=== PATIENT | female | born 1945 | race American Indian/Alaskan Native ===

== ENCOUNTER 2018-06-22 10:43 | Outpatient (CLI) | payer MEDICARE | END 2018-06-22 10:44 | disposition home or self-care (01) | LOC: LAB 10:43 | PROVIDERS: ATTEND Internal Medicine | DX: E11.65 Type 2 diabetes mellitus with hyperglycemia (principal); I10 Essential (primary) hypertension | CPT/HCPCS: 36415; 83036 ==

== ENCOUNTER 2018-11-23 09:39 | Outpatient (CLI) | payer MEDICARE ==
--- NOTE | 2018-11-23 11:39 | XRay Report ---
Metastatic survey-17 views INDICATION: C90.01)Multiple myeloma in remission. COMPARISON: There is reportedly a metastatic survey from 01/05/2016, although I do not have images or a report IMPRESSION: No gross osseous metastatic disease identified. Several right-sided rib fractures are pr esent which appear to be subacute/chronic. A right-sided Port-A-Cath is in place with tip in the SVC. Several small radiopacities project over the skull, presumably related to the patient's hair or ramon ething on the skin surface. There are degenerative changes throughout the spine and pelvis with no ac [place] osseous abnormality. Signer Name: Lauri Harrison MD Signed: 11/23/2018 11:35 AM Workstation Name: [id number]
== END 2018-11-23 09:40 | disposition home or self-care (01) ==
LOC: XRAY 09:39
PROVIDERS: ATTEND Internal Medicine Hematology & Oncology
DX: C90.01 Multiple myeloma in remission (principal); E11.9 Type 2 diabetes mellitus without complications; I10 Essential (primary) hypertension
CPT/HCPCS: 77074

== ENCOUNTER 2018-12-13 05:49 | Day surgery (SDC) | payer MEDICARE ==
[2018-12-13 06:54] LABS: INR 1.03 (0.87-1.13); Partial Thromboplastin Time 26.2 Sec. (24.2-36.6)
[2018-12-13 07:07] LABS: Hematocrit 35.6 % (30.3-42.9); Hemoglobin 11.6 gm/dl (10.1-14.3); Mean Corpuscular HGB Conc 33 % (30-34); Mean Corpuscular Volume 97 fl (79-97); Platelet Count 105 K/mm3 (140-440); Red Blood Count 3.67 M/mm3 (3.65-5.03); Red Cell Distribution Width 14.6 % (13.2-15.2)
[2018-12-13] MEDS ORDERED: DILAUDID IV NR (08:11)
[2018-12-13] MEDS ORDERED: ZOFRAN IV NR (08:12)
[2018-12-13] MEDS ORDERED: DILAUDID ONE (09:19)
[2018-12-13] MEDS ORDERED: DILAUDID IV ONE (09:30)
--- NOTE | 2018-12-13 10:20 | Cat Scan Report ---
CT-GUIDED BONE MARROW BIOPSY INDICATION : Multiple myeloma. Thrombocytopenia COMPARISON: None PROCEDURE: The risks (including but not limited to bleeding and infection) and benefits were explain ed to the patient and informed consent was obtained. All CT scans at this location are performed usi ng CT dose reduction for PEGGYRA by means of automated exposure control. A time out procedure was performed. The procedure site was prepped and draped in the usual sterile f ashion and lidocaine was used for local anesthesia. Anxiolysis was accomplished with IV Dilaudid and Zofran. Using CT guidance, an 10 introducer needle w as advanced into the posterior right iliac bone. 4 bone marrow aspirations approximately 1 cc each we re obtained in 4 tubes. A 1 cm 11-gauge bone core was also obtained. Pathology was present to handle the samples. The patient tolerated the procedure well with no complications. IMPRESSION: Successful CT-guided bone marrow biopsy. Signer Name: Scott Sawyer Jr, MD Signed: 12/13/2018 10:16 AM Workstation Name: [id number]
[2018-12-13 10:36] VITALS: BP 140/58
[2018-12-13 12:30] LABS: Basophils % (Manual) 0 % (0.0-1.8); Total Cells Counted 100
[2018-12-13 12:31] LABS: Platelet Estimate Consistent w Auto; RBC Morphology Normal
== END 2018-12-13 10:57 | disposition home or self-care (01) ==
LOC: CATHLABREC 05:49 → EDSTATUS 07:30 → CATHLABREC 10:57
PROVIDERS: ATTEND Internal Medicine Hematology & Oncology
DX: C90.01 Multiple myeloma in remission (principal); D69.6 Thrombocytopenia, unspecified; E11.65 Type 2 diabetes mellitus with hyperglycemia; E66.01 Morbid (severe) obesity due to excess calories; I11.0 Hypertensive heart disease with heart failure; I50.9 Heart failure, unspecified; I25.10 Atherosclerotic heart disease of native coronary artery without angina pectoris; Z98.890 Other specified postprocedural states; Z79.82 Long term (current) use of aspirin; Z79.4 Long term (current) use of insulin; Z79.899 Other long term (current) drug therapy; Z98.41 Cataract extraction status, right eye; Z98.42 Cataract extraction status, left eye
CPT/HCPCS: 36415; 38222; 82962; 85007; 85027; 85097; 85610; 85730; 88184; 88185; 88230; 88291; 88305; J1170; J2405; 38220; 88161; 88311; 88313

== ENCOUNTER 2019-01-04 12:07 | Inpatient (IN) | payer MEDICARE ==
--- NOTE | 2019-01-04 12:32 | Event Note ---
ED Screening Note Date of service: 01/04/19 Time: 12:30 ED Screening Note: 73 y/o female that is currently in chemotherapy for multiplemyeloma c/o SOB times 1 month. No fevers. This initial assessment/diagnostic orders/clinical plan/treatment(s) is/are subject to change based on patients health status, clinical progression and re- assessment by fellow clinical providers in the ED. Further treatment and workup at subsequent clinical providers discretion. Patient/guardian urged not to elope from the ED as their condition may be serious if not clinically assessed and managed. Initial orders include:
--- NOTE | 2019-01-04 13:13 | XRay Report ---
CHEST 2 VIEW INDICATION: Shortness of breath. COMPARISON: 11/23/2018 FINDINGS: Support devices: Right Tynbhx-t-Ciyd remains in the same position. Heart: Within normal limits. Lungs/Pleura: There is poor inspiratory effort with hypoventilatory changes in the lower lung zones. Mild bronchial wall thickening is suspected in both hilar regions which could represent reactive airw ay disease or bronchiolitis. No consolidation, pleural effusion or pneumothorax is identified. Additional findings: None. IMPRESSION: Poor inspiration. Mild bilateral perihilar prominence is identified as described above. No lobar pne umonia, pleural effusion or pneumothorax. Signer Name: Scott Sawyer Jr, MD Signed: 01/04/2019 1:08 PM Workstation Name: [id number]
[2019-01-04] MEDS ORDERED: IPRATROPIUM/ALBUTEROL SULFATE 3 ML AMPUL.NEB IH ONE ×2 (13:42→14:33)
[2019-01-04 13:56] LABS: Basophils % (Auto) 0.6 % (0.0-1.8); Eosinophils % (Auto) 0.5 % (0.0-4.3); Hematocrit 36.4 % (30.3-42.9); Hemoglobin 12.1 gm/dl (10.1-14.3); Lymphocytes # (Auto) 1.3 K/mm3 (1.2-5.4); Lymphocytes % (Auto) 16.6 % (13.4-35.0); Mean Corpuscular HGB Conc 33 % (30-34); Mean Corpuscular Volume 96 fl (79-97); Monocytes # (Auto) 0.4 K/mm3 (0.0-0.8); Monocytes % (Auto) 4.9 % (0.0-7.3); Platelet Count 113 K/mm3 (140-440); Red Blood Count 3.78 M/mm3 (3.65-5.03); Red Cell Distribution Width 15.3 % (13.2-15.2)
[2019-01-04 14:01] LABS: Alanine Aminotransferase 17 units/L (7-56); Albumin 2.8 g/dL (3.9-5); BUN/Creatinine Ratio 14; Blood Urea Nitrogen 11 mg/dL (7-17); Calcium 9.9 mg/dL (8.4-10.2); Hemolysis Index 36
--- NOTE | 2019-01-04 14:14 | Emergency Department Report ---
ED General Adult HPI - General Chief complaint: Dyspnea/Respdistress Stated complaint: RAFFAELE Time Seen by Provider: 01/04/19 12:28 Source: patient, family Mode of arrival: Wheelchair Limitations: No Limitations - History of Present Illness Initial comments: 73-year-old female arrives with I believe her daughter. She herself is very poor historian. It is states that patient has been short of breath the last month and a half. She went to her oncologist Dr. Campbell became more dyspneic. She was sent to the emergency department for evaluation. The patient states he is short of breath. They have noted some mild swelling of her feet. She does not complain of chest pain. She has some nonproductive cough but it is not frequent. She's had no recent travel. She had no hemoptysis. There is no history of known cardiac or pulmonary disease per se. The patient is morbidly obese. She has a history of multiple myeloma. This is her second round of chemotherapy. Associated Symptoms: denies other symptoms (a limited historian) - Related Data Home Medications Medication Instructions Recorded Confirmed Last Taken Potassium Chloride 20 meq PO QDAY 07/07/13 12/13/18 12/12/18 20 meq oxyCODONE /ACETAMINOPHEN [Percocet 1 tab PO Q4H PRN 07/07/13 12/13/18 11/26/18 5/325 mg] 1 tab Insulin Aspart Prot/Aspart(Nf) 12 unit SQ HS 07/31/13 12/13/18 12/12/18 [Novolog Mix 70/30] 12 units Aspirin [Adult Aspirin] 81 mg PO DAILY 12/13/18 12/13/18 1 Week Ago ~12/06/18 Insulin Aspart Prot/Aspart(Nf) 15 unit SQ QAM 12/13/18 12/13/18 12/12/18 [NovoLOG Mix 70/30 VIAL] 15 units Allopurinol [Zyloprim] 300 mg PO QDAY 01/04/19 01/04/19 01/03/19 Previous Rx's Medication Instructions Recorded Last Taken Type Lactulose [Cephulac] 20 gm PO QDAY #300 ml 08/10/13 12/10/18 Rx 20 gm Allergies Allergy/AdvReac Type Severity Reaction Status Date / Time No Known Allergies Allergy Verified 12/12/12 12:44 ED Review of Systems ROS: Stated complaint: RAFFAELE Other details as noted in HPI Comment: Unobtainable due to pts medical conditions ED Past Medical Hx - Past Medical History Previous Medical History?: Yes Hx Hypertension: Yes (on carvidolol) Hx Heart Attack/AMI: Yes (05/2012) Hx Diabetes: Yes Hx Liver Disease: Yes (Jaundice d/t gallstones) Hx Asthma: No Hx HIV: No Additional medical history: bile duct stones - Surgical History Past Surgical History?: Yes Additional Surgical History: bile duct stone removed - Social History Smoking Status: Never Smoker Substance Use Type: None - Medications Home Medications: Home Medications Medication Instructions Recorded Confirmed Last Taken Type Potassium Chloride 20 meq PO QDAY 07/07/13 12/13/18 12/12/18 History 20 meq oxyCODONE /ACETAMINOPHEN [Percocet 1 tab PO Q4H PRN 07/07/13 12/13/18 11/26/18 History 5/325 mg] 1 tab Insulin Aspart Prot/Aspart(Nf) 12 unit SQ HS 07/31/13 12/13/18 12/12/18 History [Novolog Mix 70/30] 12 units Lactulose [Cephulac] 20 gm PO QDAY #300 ml 08/10/13 12/13/18 12/10/18 Rx 20 gm Aspirin [Adult Aspirin] 81 mg PO DAILY 12/13/18 12/13/18 1 Week Ago History ~12/06/18 Insulin Aspart Prot/Aspart(Nf) 15 unit SQ QAM 12/13/18 12/13/18 12/12/18 History [NovoLOG Mix 70/30 VIAL] 15 units Allopurinol [Zyloprim] 300 mg PO QDAY 01/04/19 01/04/19 01/03/19 History ED Physical Exam - General Limitations: No Limitations General appearance: alert, in no apparent distress, obese - Head Head exam: Present: atraumatic, normocephalic - Eye Eye exam: Present: normal appearance - ENT ENT exam: Present: mucous membranes moist - Neck Neck exam: Present: normal inspection. Absent: tenderness, meningismus - Respiratory Respiratory exam: Present: other (increased work of breathing). Absent: respiratory distress - Cardiovascular Cardiovascular Exam: Present: regular rate, normal rhythm. Absent: systolic murmur, diastolic murmur, rubs, gallop - GI/Abdominal GI/Abdominal exam: Present: soft, normal bowel sounds. Absent: distended, tenderness, guarding, rebound - Extremities Exam Extremities exam: Present: normal inspection, pedal edema. Absent: calf tenderness - Back Exam Back exam: Present: normal inspection - Neurological Exam Neurological exam: Present: alert, oriented X3 - Psychiatric Psychiatric exam: Present: normal affect, normal mood - Skin Skin exam: Present: warm, dry, intact, normal color. Absent: rash ED Course Vital Signs 01/04/19 01/04/19 01/04/19 12:21 13:06 13:15 Temperature 97.7 F Pulse Rate 76 81 Pulse Rate [ Bilateral] Respiratory 18 22 Rate Respiratory Rate [Bilateral ] Blood Pressure 170/68 145/75 139/68 O2 Sat by Pulse 95 95 Oximetry 01/04/19 01/04/19 13:30 14:29 Temperature Pulse Rate 82 Pulse Rate [ 81 Bilateral] Respiratory 19 Rate Respiratory 18 Rate [Bilateral ] Blood Pressure 142/71 O2 Sat by Pulse 97 Oximetry - Reevaluation(s) Reevaluation #1: Discussed with Dr. Rapp. We are going to proceed with CT angiogram. Positive the patient's dyspnea is yet uncertain. Her blood gas revealed a PO2 69 with no rmal pH and essentially normal PCO2. Her chest x-ray may be consistent with. Mild Hilar infiltrates secondary to CHF. Additional lab work is yet pending. She will be admitted to [facility] for further evaluation by Dr. Rapp. 01/04/19 14:38 ED Medical Decision Making - Lab Data Result diagrams: 01/04/19 13:13 01/04/19 13:13 Laboratory Results - last 24 hr 01/04/19 01/04/19 13:13 13:13 WBC 7.6 RBC 3.78 Hgb 12.1 Hct 36.4 MCV 96 MCH 32 MCHC 33 RDW 15.3 H Plt Count 113 L Lymph % (Auto) 16.6 [place] % (Auto) 4.9 Eos % (Auto) 0.5 Baso % (Auto) 0.6 Lymph # 1.3 [place] # 0.4 Eos # 0.0 Baso # 0.0 Seg Neutrophils % 77.4 H Seg Neutrophils # 5.9 Sodium 138 Potassium 4.6 Chloride 104.6 Carbon Dioxide 22 Anion Gap 16 BUN 11 Creatinine 0.8 Estimated GFR > 60 BUN/Creatinine Ratio 14 Glucose 115 H Calcium 9.9 Total Bilirubin 0.30 AST 17 ALT 17 Alkaline Phosphatase 51 Total Protein 8.5 H Albumin 2.8 L Albumin/Globulin Ratio 0.5 Laboratory Results - last 24 hr 01/04/19 01/04/19 13:13 13:13 WBC 7.6 RBC 3.78 Hgb 12.1 Hct 36.4 MCV 96 MCH 32 MCHC 33 RDW 15.3 H Plt Count 113 L Lymph % (Auto) 16.6 [place] % (Auto) 4.9 Eos % (Auto) 0.5 Baso % (Auto) 0.6 Lymph # 1.3 [place] # 0.4 Eos # 0.0 Baso # 0.0 Seg Neutrophils % 77.4 H Seg Neutrophils # 5.9 Sodium 138 Potassium 4.6 Chloride 104.6 Carbon Dioxide 22 Anion Gap 16 BUN 11 Creatinine 0.8 Estimated GFR > 60 BUN/Creatinine Ratio 14 Glucose 115 H Calcium 9.9 Total Bilirubin 0.30 AST 17 ALT 17 Alkaline Phosphatase 51 Total Protein 8.5 H Albumin 2.8 L Albumin/Globulin Ratio 0.5 - EKG Data -: EKG Interpreted by Mi EKG shows normal: sinus rhythm, axis (left), intervals, QRS complexes Rate: normal - EKG Data Interpretation: nonspecific ST-T wave chin - Radiology Data Radiology results: report reviewed, image reviewed Chest x-ray hypoinflated no acute process seen Critical care attestation.: If time is entered above; I have spent that time in minutes in the direct care of this critically ill patient, excluding procedure time. ED Disposition Clinical Impression: Thrombocytopenia, Diastolic dysfunction, Morbid obesity Dyspnea Qualifiers: Dyspnea type: unspecified Qualified Code(s): R06.00 - Dyspnea, unspecified Multiple myeloma Qualifiers: Multiple myeloma remission status: unspecified Qualified Code(s): C90.00 - Multiple myeloma not having achieved remission Disposition: OP ADMIT IP TO THIS HOSP Is pt being admited?: Yes Does the pt Need Aspirin: Yes Condition: Stable Referrals: PRIMARY CARE, [Primary Care Provider] - 3-5 Days Time of Disposition: 15:00
[2019-01-04] MEDS ORDERED: ASPIRIN 81 MG TAB CHEW PO ONE (14:42)
[2019-01-04 14:46] LABS: INR 0.93 (0.87-1.13)
[2019-01-04 14:51] LABS: Creatine Kinase MB 1.3 ng/mL (0.0-4.0)
--- NOTE | 2019-01-04 15:46 | Cat Scan Report ---
CTA of the chest with 3D Reconstruction Indication: ,Shortness of breath for one month Technique: TECHNIQUE: Axial CT images were obtained through the chest after injection of 100 cc of Omnipaque 350 IV contrast. 3 plane MIP reconstructions were produced. All CT scans at this location are performed using CT dose reduction for ALARA by means of automated exposure control. COMPARISON: None Automatic exposure control was utilized in an attempt to reduce radiation dose. Findings: Pulmonary arteries: The main pulmonary artery and right and left pulmonary artery branches fill satis factorily with contrast. No pulmonary embolus is seen. Lungs: No acute pulmonary disease is seen. There is deformity of several left Mediastinum: Heart size is normal. No adenopathy is seen. Aorta: Normal in diameter. No dissection seen within limits of this exam. There is deformity of several left ribs. There are healed fractures as well. There are several focal expanded areas with within the ribs bilaterally. These could be related to prior fracture. Healed. P ossible millimeters these represent expansile lesions which are neither lytic or sclerotic is conside red. Impression: No pulmonary embolus is seen Signer Name: Drew Adorno MD Signed: 01/04/2019 3:41 PM Workstation Name: [id number]
[2019-01-04] MEDS ORDERED: traMADol 50 MG TAB PO PRN (18:36)
[2019-01-04] MEDS: IPRATROPIUM/ALBUTEROL SULFATE 3 ML AMPUL.NEB IH SCH ×2 (18:38→19:01)
[2019-01-04] MEDS ORDERED: DEXTROSE 50% IN WATER (25GM) 50 ML SYRINGE IV PRN (18:39)
[2019-01-04] MEDS ORDERED: oxyCODONE 5 MG TAB PO PRN (21:28)
[2019-01-04] MEDS ORDERED: ASPART SQ SCH (22:00)
[2019-01-04] MEDS ORDERED: INSULIN ASPART PROT SQ SCH (22:00)
[2019-01-04] MEDS ORDERED: TIMOLOL MALEAT OP SCH (22:00)
[2019-01-04] MEDS ORDERED: allopurinoL 300 MG TAB PO SCH (22:00)
[2019-01-04] MEDS ORDERED: DORZOLAMIDE HCL OP SCH (22:00)
[2019-01-04] MEDS ORDERED: INSULIN LISPRO 100 UNIT/ML SUB-Q SCH (22:00)
[2019-01-04] MEDS: FUROSEMIDE 40 MG/4 ML INJ IV SCH (23:04)
[2019-01-04] MEDS: LACTULOSE 20 GM/30 ML ORAL LIQD PO SCH (23:04)
[2019-01-04] MEDS: POTASSIUM CHLORIDE 20 MEQ PACKET PO SCH (23:05)
[2019-01-04] MEDS: INSULIN NPH/REGULAR 70/30 INJ SUB-Q SCH (23:05)
--- NOTE | 2019-01-05 06:19 | History and Physical Report ---
History of Present Illness Date of examination: 01/04/19 Date of admission: 01/04/19 14:43 Chief complaint: SOB for one week History of present illness: 73-year-old female with history of Multiple Myeloma IDDM ,HTN and Morbid obesity well known to me from office for 20 years comes in for increasing SOB and Orthopnea for one week.Started Chemo couple of weeks ago with Dr Campbell.Had Chemo for MM in the past.MM was diagnosed about 10 years ago. She went to her oncologist Dr. Campbell and became more dyspneic in the office. She was sent to the emergency dept. She does not complain of chest pain. She has some nonproductive cough but it is not frequent. She's had no recent travel. She had no hemoptysis. There is no history of known cardiac or pulmonary disease per se. The patient is morbidly obese. She has a history of multiple myeloma. This is her second round of chemotherapy. Associated Symptoms: denies other symptoms (a limited historian) - Related Data Home Medications Medication Instructions Recorded Confirmed Last Taken Potassium Chloride 20 meq PO QDAY 07/07/13 12/13/18 12/12/18 20 meq oxyCODONE /ACETAMINOPHEN [Percocet 1 tab PO Q4H PRN 07/07/13 12/13/18 11/26/18 5/325 mg] 1 tab Insulin Aspart Prot/Aspart(Nf) 12 unit SQ HS 07/31/13 12/13/18 12/12/18 [Novolog Mix 70/30] 12 units Aspirin [Adult Aspirin] 81 mg PO DAILY 12/13/18 12/13/18 1 Week Ago ~12/06/18 Insulin Aspart Prot/Aspart(Nf) 15 unit SQ QAM 12/13/18 12/13/18 12/12/18 [NovoLOG Mix 70/30 VIAL] 15 units Allopurinol [Zyloprim] 300 mg PO QDAY 01/04/19 01/04/19 01/03/19 Previous Rx's Medication Instructions Recorded Last Taken Type Lactulose [Cephulac] 20 gm PO QDAY #300 ml 08/10/13 12/10/18 Rx 20 gm Allergies Allergy/AdvReac Type Severity Reaction Status Date / Time No Known Allergies Allergy Verified 12/12/12 12:44 ED Review of Systems ROS: Stated complaint: RAFFAELE Other details as noted in HPI Comment: Unobtainable due to pts medical conditions ED Past Medical Hx - Past Medical History Previous Medical History?: Yes Hx Hypertension: Yes (on carvidolol) Hx Heart Attack/AMI: Yes (05/2012) Hx Diabetes: Yes Hx Liver Disease: Yes (Jaundice d/t gallstones) Hx Asthma: No Hx HIV: No Additional medical history: bile duct stones - Surgical History Past Surgical History?: Yes Additional Surgical History: bile duct stone removed - Social History Smoking Status: Never Smoker Substance Use Type: None - Medications Home Medications: Home Medications Medication Instructions Recorded Confirmed Last Taken Type Potassium Chloride 20 meq PO QDAY 07/07/13 12/13/18 12/12/18 History 20 meq oxyCODONE /ACETAMINOPHEN [Percocet 1 tab PO Q4H PRN 07/07/13 12/13/18 11/26/18 History 5/325 mg] 1 tab Insulin Aspart Prot/Aspart(Nf) 12 unit SQ HS 07/31/13 12/13/18 12/12/18 History [Novolog Mix 70/30] 12 units Lactulose [Cephulac] 20 gm PO QDAY #300 ml 08/10/13 12/13/18 12/10/18 Rx 20 gm Aspirin [Adult Aspirin] 81 mg PO DAILY 12/13/18 12/13/18 1 Week Ago History ~12/06/18 Insulin Aspart Prot/Aspart(Nf) 15 unit SQ QAM 12/13/18 12/13/18 12/12/18 History [NovoLOG Mix 70/30 VIAL] 15 units Allopurinol [Zyloprim] 300 mg PO QDAY 01/04/19 01/04/19 01/03/19 History Medications and Allergies Allergies Allergy/AdvReac Type Severity Reaction Status Date / Time No Known Allergies Allergy Verified 12/12/12 12:44 Home Medications Medication Instructions Recorded Confirmed Last Taken Type oxyCODONE /ACETAMINOPHEN [Percocet 1 tab PO Q4H PRN 07/07/13 01/04/19 01/03/19 History 5/325 mg] Insulin Aspart Prot/Aspart(Nf) 12 unit SQ HS 07/31/13 01/04/19 01/03/19 History [Novolog Mix 70/30] Lactulose [Cephulac] 20 gm PO QDAY #300 ml 0501/04/19 01/03/19 Rx Aspirin [Adult Aspirin] 81 mg PO DAILY 12/13/18 01/04/19 01/03/19 History Insulin Aspart Prot/Aspart(Nf) 15 unit SQ QAM 12/13/18 01/04/19 01/03/19 History [NovoLOG Mix 70/30 VIAL] Allopurinol [Zyloprim] 300 mg PO QDAY 01/04/19 01/04/19 01/03/19 History Dorzolamide HCl/Timolol Maleat 10 ml OP BID 01/04/19 01/04/19 Unknown History [Cosopt Eye Drops] Latanoprost 0.005% [Xalatan 0.005%] 1 drop OP QPM 01/04/19 01/04/19 Unknown History Active Meds: Active Medications Albuterol/Ipratropium (Duoneb *Not For Prn Use*) 1 ampul IH QIDRT [place] Allopurinol (Zyloprim) 100 mg PO QDAY [place] Aspirin (Halfprin Ec) 81 mg PO DAILY [facility] Dextrose (D50w (25gm) Syringe) 50 ml IV PRN PRN PRN Reason: Hypoglycemia Furosemide (Lasix) 40 mg IV QDAY [facility] Last Admin: 01/04/19 23:04 Dose: 40 mg Documented by: Insulin Human Isoph/Insulin Regular (Humulin 70/30) 12 unit SUB-Q QHS [facility] Last Admin: 01/04/19 23:05 Dose: 12 unit Documented by: Insulin Human Isoph/Insulin Regular (Humulin 70/30) 15 unit SUB-Q QAMDIAB [facility] Insulin Human Lispro (Humalog) 0 unit SUB-Q ACHS [facility]; Protocol Lactulose (Cephulac) 20 gm PO QDAY [facility] Last Admin: 01/04/19 23:04 Dose: 20 gm Documented by: Latanoprost (Latanoprost 0.005%) 1 drops OU QPM [facility] Miscellaneous Medication (Dorzolamide Hcl/Timolol Maleat [Cosopt Eye Drops]) 10 ml OP BID [place] Oxycodone HCl (Roxicodone) 10 mg PO Q6H PRN PRN Reason: Pain, Moderate (4-6) Potassium Chloride (Potassium Chloride) 20 meq PO QDAY [facility] Last Admin: 01/04/19 23:05 Dose: 20 meq Documented by: Exam - Constitutional Vitals: Temp Pulse Resp BP Pulse Ox 97.5 F L 92 H 18 107/55 99 01/05/19 02:09 01/05/19 02:09 01/05/19 02:09 01/05/19 02:09 01/05/19 02:09 General appearance: Present: mild distress, well-nourished - EENT Eyes: Present: PERRL ENT: hearing intact, clear oral mucosa - Neck Neck: Present: supple, normal ROM - Respiratory Respiratory effort: normal Respiratory: bilateral: CTA, rales - Cardiovascular Heart rate: 90 Rhythm: regular Heart Sounds: Present: S1 & S2. Absent: rub, click - Extremities Extremities: no ischemia, pulses intact, pulses symmetrical, No edema Peripheral Pulses: within normal limits - Abdominal General gastrointestinal: Present: soft, non-tender, non-distended, normal bowel sounds Female genitourinary: Present: normal - Rectal Rectal Exam: deferred - Integumentary Integumentary: Present: clear, warm, dry - Musculoskeletal Musculoskeletal: gait normal, strength equal bilaterally - Psychiatric Psychiatric: appropriate mood/affect, intact judgment & insight - Neurologic Neurologic: CNII-XII intact, moves all extremities - Allied Health Allied health notes reviewed: nursing, case management Results - Labs CBC & Chem 7: 01/04/19 13:13 01/04/19 13:13 Labs: Laboratory Last Values WBC 7.6 K/mm3 (4.5-11.0) 01/04/19 13:13 RBC 3.78 M/mm3 (3.65-5.03) 01/04/19 13:13 Hgb 12.1 gm/dl (10.1-14.3) 01/04/19 13:13 Hct 36.4 % (30.3-42.9) 01/04/19 13:13 MCV 96 fl (79-97) 01/04/19 13:13 MCH 32 pg (28-32) 01/04/19 13:13 MCHC 33 % (30-34) 01/04/19 13:13 RDW 15.3 % (13.2-15.2) H 01/04/19 13:13 Plt Count 113 K/mm3 (140-440) L 01/04/19 13:13 Lymph % (Auto) 16.6 % (13.4-35.0) 01/04/19 13:13 [place] % (Auto) 4.9 % (0.0-7.3) 01/04/19 13:13 Eos % (Auto) 0.5 % (0.0-4.3) 01/04/19 13:13 Baso % (Auto) 0.6 % (0.0-1.8) 01/04/19 13:13 Lymph # 1.3 K/mm3 (1.2-5.4) 01/04/19 13:13 [place] # 0.4 K/mm3 (0.0-0.8) 01/04/19 13:13 Eos # 0.0 K/mm3 (0.0-0.4) 01/04/19 13:13 Baso # 0.0 K/mm3 (0.0-0.1) 01/04/19 13:13 Seg Neutrophils % 77.4 % (40.0-70.0) H 01/04/19 13:13 Seg Neutrophils # 5.9 K/mm3 (1.8-7.7) 01/04/19 13:13 PT 12.2 Sec. (12.2-14.9) 01/04/19 14:11 INR 0.93 (0.87-1.13) 01/04/19 14:11 APTT 20.0 Sec. (24.2-36.6) L 01/04/19 14:11 POC ABG pH 7.386 (7.35-7.45) 01/04/19 14:41 POC ABG pCO2 37.6 (35-45) 01/04/19 14:41 POC ABG pO2 69 (80-105) L 01/04/19 14:41 POC ABG HCO3 22.5 (22-26 mml/L) 01/04/19 14:41 POC ABG Total CO2 24 (23-27mmol/L) 01/04/19 14:41 POC ABG O2 Sat 93 01/04/19 14:41 POC ABG Base Excess -2 ((-2) - (+3)mmol/L) 01/04/19 14:41 FiO2 21 % 01/04/19 14:41 Sodium 138 mmol/L (137-145) 01/04/19 13:13 Potassium 4.6 mmol/L (3.6-5.0) 01/04/19 13:13 Chloride 104.6 mmol/L (98-107) 01/04/19 13:13 Carbon Dioxide 22 mmol/L (22-30) 01/04/19 13:13 Anion Gap 16 mmol/L 01/04/19 13:13 BUN 11 mg/dL (7-17) 01/04/19 13:13 Creatinine 0.8 mg/dL (0.7-1.2) 01/04/19 13:13 Estimated GFR > 60 ml/min 01/04/19 13:13 BUN/Creatinine Ratio 14 % 01/04/19 13:13 Glucose 115 mg/dL (65-100) H 01/04/19 13:13 POC Glucose 291 (70-105) H 01/04/19 21:12 Calcium 9.9 mg/dL (8.4-10.2) 01/04/19 13:13 Magnesium 1.60 mg/dL (1.7-2.3) L 01/04/19 14:11 Total Bilirubin 0.30 mg/dL (0.1-1.2) 01/04/19 13:13 AST 17 units/L (5-40) 01/04/19 13:13 ALT 17 units/L (7-56) 01/04/19 13:13 Alkaline Phosphatase 51 units/L (35-129) 01/04/19 13:13 Total Creatine Kinase 65 units/L (30-135) 01/04/19 14:11 CK-MB (CK-2) 1.3 ng/mL (0.0-4.0) 01/04/19 14:11 CK-MB (CK-2) Rel Index 2.0 (0-4) 01/04/19 14:11 Troponin T < 0.010 ng/mL (0.00-0.029) 01/04/19 14:11 NT-Pro-B Natriuret Pep 223.9 pg/mL (0-900) 01/04/19 14:11 Total Protein 8.5 g/dL (6.3-8.2) H 01/04/19 13:13 Albumin 2.8 g/dL (3.9-5) L 01/04/19 13:13 Albumin/Globulin Ratio 0.5 % 01/04/19 13:13 Blood Type O POSITIVE 01/04/19 14:11 Antibody Screen Negative 01/04/19 14:11 Short CBC 01/04/19 Range/Units 13:13 WBC 7.6 (4.5-11.0) K/mm3 Hgb 12.1 (10.1-14.3) gm/dl Hct 36.4 (30.3-42.9) % Plt Count 113 L (140-440) K/mm3 BMP 01/04/19 13:13 Sodium 138 Potassium 4.6 Chloride 104.6 Carbon Dioxide 22 BUN 11 Creatinine 0.8 Glucose 115 H Calcium 9.9 Cardiac Enzymes 01/04/19 Range/Units 14:11 Total Creatine Kinase 65 (30-135) units/L CK-MB (CK-2) 1.3 (0.0-4.0) ng/mL Troponin T < 0.010 (0.00-0.029) ng/mL Liver Function 01/04/19 Range/Units 13:13 Total Bilirubin 0.30 (0.1-1.2) mg/dL AST 17 (5-40) units/L ALT 17 (7-56) units/L Alkaline Phosphatase 51 (35-129) units/L Albumin 2.8 L (3.9-5) g/dL - Imaging and Cardiology EKG: report reviewed (SR 86/min) Chest x-ray: report reviewed (Jozef perihilar prominence) CT scan - chest: report reviewed (No PE) Assessment and Plan Advance Directives: Yes (FC) VTE prophylaxis?: Chemical Plan of care discussed with patient/family: Yes - Patient Problems (1) Acute exacerbation of CHF (congestive heart failure) Current Visit: Yes Status: Acute Qualifiers: Heart failure type: combined systolic and diastolic Qualified Code(s): I50.43 - Acute on chronic combined systolic (congestive) and diastolic (congestive) heart failure Plan to address problem: IV Lasix Daily wts I/o ECHO for EF (2) Multiple myeloma Current Visit: Yes Status: Chronic Qualifiers: Multiple myeloma remission status: in remission Qualified Code(s): C90.01 - Multiple myeloma in remission Plan to address problem: Per Dr Jasbir morelos (3) IDDM (insulin dependent diabetes mellitus) Current Visit: Yes Status: Chronic Plan to address problem: Cont Insulin and coverage (4) HTN (hypertension) Current Visit: Yes Status: Chronic Qualifiers: Hypertension type: essential hypertension Qualified Code(s): I10 - Essential (primary) hypertension Plan to address problem: Cont Antihypertensives (5) DVT prophylaxis Current Visit: Yes Status: Acute Plan to address problem: On Lovenox and GI prophylaxis
[2019-01-05] MEDS: INSULIN LISPRO 100 UNIT/ML SUB-Q SCH ×3 (06:30→17:07)
[2019-01-05] MEDS ORDERED: INSULIN NPH/REGULAR 70/30 INJ SUB-Q SCH (08:00)
--- NOTE | 2019-01-05 08:51 | Event Note ---
Date: 01/05/19 [id number]
[2019-01-05] MEDS ORDERED: MAGNESIUM SULFATE 3 GM in SODIUM CHLORIDE 0.9% 100 ML IV ONE (09:00)
--- NOTE | 2019-01-05 09:39 | Consultation ---
History of Present Illness Consult date: 01/05/19 Consult reason: congestive heart failure History of present illness: Patient is a 73-year old woman with a history of multiple myeloma, currently on chemotherapy. There in no history of coronary artery disease. In 2012 she underwent a cardiac catheterization that reports no significant coronary artery disease. Patient presented with shortness of breath. Patient reports shortness of breath just after completing chemotherapy on yesterday. She had no chest pain or palpitations. There is no lower extremity edema. Chest x-ray reports poor ins piratory effort and a chest CTA was negative for pulmonary embolus. A cardiology consultation has been requested for CHF evaluation. Medications and Allergies Allergies Allergy/AdvReac Type Severity Reaction Status Date / Time No Known Allergies Allergy Verified 12/12/12 12:44 Home Medications Medication Instructions Recorded Confirmed Last Taken Type oxyCODONE /ACETAMINOPHEN [Percocet 1 tab PO Q4H PRN 07/07/13 01/04/19 01/03/19 History 5/325 mg] Insulin Aspart Prot/Aspart(Nf) 12 unit SQ HS 07/31/13 01/04/19 01/03/19 History [Novolog Mix 70/30] Lactulose [Cephulac] 20 gm PO QDAY #300 ml 08/10/13 01/04/19 01/03/19 Rx Aspirin [Adult Aspirin] 81 mg PO DAILY 12/13/18 01/04/19 01/03/19 History Insulin Aspart Prot/Aspart(Nf) 15 unit SQ QAM 12/13/18 01/04/19 01/03/19 History [NovoLOG Mix 70/30 VIAL] Allopurinol [Zyloprim] 300 mg PO QDAY 01/04/19 01/04/19 01/03/19 History Dorzolamide HCl/Timolol Maleat 10 ml OP BID 01/04/19 01/04/19 Unknown History [Cosopt Eye Drops] Latanoprost 0.005% [Xalatan 0.005%] 1 drop OP QPM 01/04/19 01/04/19 Unknown History Active Meds: Active Medications Albuterol/Ipratropium (Duoneb *Not For Prn Use*) 1 ampul IH QIDRT [place] Allopurinol (Zyloprim) 100 mg PO QDAY [place] Aspirin (Halfprin Ec) 81 mg PO DAILY [place] Dextrose (D50w (25gm) Syringe) 50 ml IV PRN PRN PRN Reason: Hypoglycemia Enoxaparin Sodium (Lovenox) 40 mg SUB-Q QDAY@2200 [place] Furosemide (Lasix) 40 mg IV QDAY [place] Last Admin: 01/04/19 23:04 Dose: 40 mg Documented by: Magnesium Sulfate 3 gm/ Sodium (Chloride) 106 mls @ 35.333 mls/hr IV ONCE ONE Stop: 01/05/19 11:59 Insulin Human Isoph/Insulin Regular (Humulin 70/30) 12 unit SUB-Q QHS [place] Last Admin: 01/04/19 23:05 Dose: 12 unit Documented by: Insulin Human Isoph/Insulin Regular (Humulin 70/30) 15 unit SUB-Q QAMDIAB [place] Insulin Human Lispro (Humalog) 0 unit SUB-Q ACHS [place]; Protocol Last Admin: 01/05/19 06:30 Dose: 6 unit Documented by: Lactulose (Cephulac) 20 gm PO QDAY [facility] Last Admin: 01/04/19 23:04 Dose: 20 gm Documented by: Latanoprost (Latanoprost 0.005%) 1 drops OU QPM [place] Miscellaneous Medication (Dorzolamide Hcl/Timolol Maleat [Cosopt Eye Drops]) 10 ml OP BID [place] Oxycodone HCl (Roxicodone) 10 mg PO Q6H PRN PRN Reason: Pain, Moderate (4-6) Potassium Chloride (Potassium Chloride) 20 meq PO QDAY [facility] Last Admin: 01/04/19 23:05 Dose: 20 meq Documented by: Physical Examination Vital Signs Temp Pulse Resp BP Pulse Ox 97.7 F 76 18 170/68 95 01/04/19 12:21 01/04/19 12:21 01/04/19 12:21 01/04/19 12:21 01/04/19 12:21 General appearance: no acute distress, obese HEENT: Positive: PERRL Neck: Positive: trachea midline Cardiac: Positive: Reg Rate and Rhythm Lungs: Positive: Decreased Breath Sounds Neuro: Positive: Grossly Intact Extremities: Absent: edema Results 01/04/19 13:13 01/04/19 13:13 Cardiac Enzymes 01/04/19 01/04/19 Range/Units 13:13 14:11 AST 17 (5-40) units/L CK-MB (CK-2) 1.3 (0.0-4.0) ng/mL Coagulation 01/04/19 Range/Units 14:11 PT 12.2 (12.2-14.9) Sec. INR 0.93 (0.87-1.13) APTT 20.0 L (24.2-36.6) Sec. CBC 01/04/19 Range/Units 13:13 WBC 7.6 (4.5-11.0) K/mm3 RBC 3.78 (3.65-5.03) M/mm3 Hgb 12.1 (10.1-14.3) gm/dl Hct 36.4 (30.3-42.9) % Plt Count 113 L (140-440) K/mm3 Lymph # 1.3 (1.2-5.4) K/mm3 [place] # 0.4 (0.0-0.8) K/mm3 Eos # 0.0 (0.0-0.4) K/mm3 Baso # 0.0 (0.0-0.1) K/mm3 Comprehensive Metabolic Panel 01/04/19 Range/Units 13:13 Sodium 138 (137-145) mmol/L Potassium 4.6 (3.6-5.0) mmol/L Chloride 104.6 (98-107) mmol/L Carbon Dioxide 22 (22-30) mmol/L BUN 11 (7-17) mg/dL Creatinine 0.8 (0.7-1.2) mg/dL Glucose 115 H (65-100) mg/dL Calcium 9.9 (8.4-10.2) mg/dL AST 17 (5-40) units/L ALT 17 (7-56) units/L Alkaline Phosphatase 51 (35-129) units/L Total Protein 8.5 H (6.3-8.2) g/dL Albumin 2.8 L (3.9-5) g/dL Assessment and Plan Shortness of breath chest CTA- no PE Multiple Myeloma currently on chemotherapy Obesity Plan: Echocardiogram for LVEF assessment.
[2019-01-05] MEDS: LACTULOSE 20 GM/30 ML ORAL LIQD PO SCH (09:56)
[2019-01-05] MEDS: allopurinoL 100 MG TAB PO SCH (09:56)
[2019-01-05] MEDS: POTASSIUM CHLORIDE 20 MEQ PACKET PO SCH (09:56)
[2019-01-05] MEDS: FUROSEMIDE 40 MG/4 ML INJ IV SCH (09:56)
[2019-01-05] MEDS: ASPIRIN EC 81 MG TAB PO SCH (09:56)
[2019-01-05] MEDS ORDERED: ASPART SQ SCH (10:00)
[2019-01-05] MEDS ORDERED: INSULIN ASPART PROT SQ SCH (10:00)
--- NOTE | 2019-01-05 14:10 | Progress Note ---
Assessment and Plan Assessment and plan: Acute respiratory failure Shortness of breath Supplemental Oxygen patient seen by cardiology and CHF ruled out Diabetes mellitus type 2 fingerstick glucose qac and hs Multiple myeloma On chemotherapy, started [address] angelo Campbell, consulted, following Hypertension. Monitor BP Morbid obesity I discussed diet and exercise Full code status History Interval history: Shortness of breath History of multiple myeloma Hospitalist Physical - Physical exam Narrative exam: Gen: Not in acute distress, Lying in bed, morbidly obese HEENT: Normocephalic, atraumatic Neck: supple, no JVD Heart: S1 and S2 reg, no murmurs, rubs or gallop Lungs: Clear to auscultation, no rhonchi, no wheeze Abd: soft, non tender, non distended, normal BS, Ext: No edema, no clubbing, no cyanosis Neuro: Awake, alert, oriented X 3, no focal neurological signs - Constitutional Vitals: Temp Pulse Resp BP Pulse Ox 97.7 F 115 H 20 140/65 97 01/05/19 07:31 01/05/19 08:00 01/05/19 07:31 01/05/19 07:31 01/05/19 07:31 General appearance: Present: no acute distress, obese Results - Labs CBC & Chem 7: 01/04/19 13:13 01/04/19 13:13 Labs: Laboratory Last Values WBC 7.6 K/mm3 (4.5-11.0) 01/04/19 13:13 RBC 3.78 M/mm3 (3.65-5.03) 01/04/19 13:13 Hgb 12.1 gm/dl (10.1-14.3) 01/04/19 13:13 Hct 36.4 % (30.3-42.9) 01/04/19 13:13 MCV 96 fl (79-97) 01/04/19 13:13 MCH 32 pg (28-32) 01/04/19 13:13 MCHC 33 % (30-34) 01/04/19 13:13 RDW 15.3 % (13.2-15.2) H 01/04/19 13:13 Plt Count 113 K/mm3 (140-440) L 01/04/19 13:13 Lymph % (Auto) 16.6 % (13.4-35.0) 01/04/19 13:13 [place] % (Auto) 4.9 % (0.0-7.3) 01/04/19 13:13 Eos % (Auto) 0.5 % (0.0-4.3) 01/04/19 13:13 Baso % (Auto) 0.6 % (0.0-1.8) 01/04/19 13:13 Lymph # 1.3 K/mm3 (1.2-5.4) 01/04/19 13:13 [place] # 0.4 K/mm3 (0.0-0.8) 01/04/19 13:13 Eos # 0.0 K/mm3 (0.0-0.4) 01/04/19 13:13 Baso # 0.0 K/mm3 (0.0-0.1) 01/04/19 13:13 Seg Neutrophils % 77.4 % (40.0-70.0) H 01/04/19 13:13 Seg Neutrophils # 5.9 K/mm3 (1.8-7.7) 01/04/19 13:13 PT 12.2 Sec. (12.2-14.9) 01/04/19 14:11 INR 0.93 (0.87-1.13) 01/04/19 14:11 APTT 20.0 Sec. (24.2-36.6) L 01/04/19 14:11 POC ABG pH 7.386 (7.35-7.45) 01/04/19 14:41 POC ABG pCO2 37.6 (35-45) 01/04/19 14:41 POC ABG pO2 69 (80-105) L 01/04/19 14:41 POC ABG HCO3 22.5 (22-26 mml/L) 01/04/19 14:41 POC ABG Total CO2 24 (23-27mmol/L) 01/04/19 14:41 POC ABG O2 Sat 93 01/04/19 14:41 POC ABG Base Excess -2 ((-2) - (+3)mmol/L) 01/04/19 14:41 FiO2 21 % 01/04/19 14:41 Sodium 138 mmol/L (137-145) 01/04/19 13:13 Potassium 4.6 mmol/L (3.6-5.0) 01/04/19 13:13 Chloride 104.6 mmol/L (98-107) 01/04/19 13:13 Carbon Dioxide 22 mmol/L (22-30) 01/04/19 13:13 Anion Gap 16 mmol/L 01/04/19 13:13 BUN 11 mg/dL (7-17) 01/04/19 13:13 Creatinine 0.8 mg/dL (0.7-1.2) 01/04/19 13:13 Estimated GFR > 60 ml/min 01/04/19 13:13 BUN/Creatinine Ratio 14 % 01/04/19 13:13 Glucose 115 mg/dL (65-100) H 01/04/19 13:13 POC Glucose 442 (70-105) H 01/05/19 11:44 Calcium 9.9 mg/dL (8.4-10.2) 01/04/19 13:13 Magnesium 1.60 mg/dL (1.7-2.3) L 01/04/19 14:11 Total Bilirubin 0.30 mg/dL (0.1-1.2) 01/04/19 13:13 AST 17 units/L (5-40) 01/04/19 13:13 ALT 17 units/L (7-56) 01/04/19 13:13 Alkaline Phosphatase 51 units/L (35-129) 01/04/19 13:13 Total Creatine Kinase 65 units/L (30-135) 01/04/19 14:11 CK-MB (CK-2) 1.3 ng/mL (0.0-4.0) 01/04/19 14:11 CK-MB (CK-2) Rel Index 2.0 (0-4) 01/04/19 14:11 Troponin T < 0.010 ng/mL (0.00-0.029) 01/04/19 14:11 NT-Pro-B Natriuret Pep 223.9 pg/mL (0-900) 01/04/19 14:11 Total Protein 8.5 g/dL (6.3-8.2) H 01/04/19 13:13 Albumin 2.8 g/dL (3.9-5) L 01/04/19 13:13 Albumin/Globulin Ratio 0.5 % 01/04/19 13:13 Blood Type O POSITIVE 01/04/19 14:11 Antibody Screen Negative 01/04/19 14:11 Active Medications - Current Medications Current Medications: Generic Name Dose Route Start Last Admin Trade Name Freq PRN Reason Stop Dose Admin Albuterol/Ipratropium 1 ampul 01/05/19 08:00 Duoneb *Not For Prn Use* IH QIDRT [place] Allopurinol 100 mg 01/05/19 10:00 01/05/19 09:56 Zyloprim PO 100 mg QDAY [place] Administration Aspirin 81 mg 01/05/19 10:00 01/05/19 09:56 Halfprin Ec PO 81 mg DAILY [place] Administration Dextrose 50 ml 01/04/19 18:39 D50w (25gm) Syringe IV PRN PRN Hypoglycemia Dorzolamide/Timolol 1 drops 01/05/19 22:00 Cosopt (Nf) OU BID [place] Enoxaparin Sodium 40 mg 01/05/19 22:00 Lovenox SUB-Q QDAY@2200 [place] Furosemide 40 mg 01/04/19 22:00 01/05/19 09:56 Lasix IV 40 mg QDAY [place] Administration Insulin Human Isoph/Insulin Regular 12 unit 01/04/19 22:00 01/04/19 23:05 Humulin 70/30 SUB-Q 12 unit QHS [place] Administration Insulin Human Isoph/Insulin Regular 15 unit 01/05/19 08:00 01/05/19 09:56 Humulin 70/30 SUB-Q 15 unit QAMDIAB [place] Administration Insulin Human Lispro 0 unit 01/05/19 07:30 01/05/19 12:57 Humalog SUB-Q 8 unit ACHS [place] Administration Protocol Lactulose 20 gm 01/04/19 22:00 01/05/19 09:56 Cephulac PO 20 gm QDAY [place] Administration Latanoprost 1 drops 01/05/19 18:00 Latanoprost 0.005% OU QPM [place] Oxycodone HCl 10 mg 01/04/19 21:28 Roxicodone PO Q6H PRN Pain, Moderate (4-6) Potassium Chloride 20 meq 01/04/19 22:00 01/05/19 09:56 Potassium Chloride PO 20 meq QDAY [place] Administration
[2019-01-05] MEDS: INSULIN NPH/REGULAR 70/30 INJ SUB-Q SCH ×3 (17:33→22:33)
[2019-01-05] MEDS: IPRATROPIUM/ALBUTEROL SULFATE 3 ML AMPUL.NEB IH SCH ×3 (17:50→21:24)
[2019-01-05] MEDS ORDERED: LATANOPROST 0.005% OPHTH SOLN 2.5 ML OU SCH (18:00)
[2019-01-05] MEDS: DORZOLAMIDE/TIMOLOL(NF) OPHTH DROP 2-0.5% 10 ML OU SCH (21:36)
[2019-01-05] MEDS ORDERED: ENOXAPARIN 40 MG/0.4 ML INJ SUB-Q SCH (22:00)
[2019-01-06] MEDS: INSULIN LISPRO 100 UNIT/ML SUB-Q SCH ×3 (02:05→13:05)
[2019-01-06] MEDS ORDERED: INSULIN NPH/REGULAR 70/30 INJ SUB-Q SCH ×2 (07:41→08:00)
[2019-01-06] MEDS ORDERED: REGADENOSON 0.4 MG/5 ML INJ IV ONE (08:06)
[2019-01-06] MEDS: IPRATROPIUM/ALBUTEROL SULFATE 3 ML AMPUL.NEB IH SCH (08:09)
[2019-01-06 10:14] VITALS: BP 158/73
--- NOTE | 2019-01-06 10:16 | Progress Note ---
Assessment and Plan Shortness of breath CT chest - no PE BNP - normal Troponin - negative ECg - no ischemic changes Echo showing normal LVEF with no evidence of increased filling pressures, RVSP 40 mm Hg Multiple myeloma on chemotherapy Cath 2012 - normal coronaries Echo 2013 - normal LVEF, RVSP 65-70 mm Hg Her shortness of breath is most likely a side effect from chemotherapy Stres test today Subjective Date of service: 01/06/19 Principal diagnosis: shortness of breath Interval history: No significant events overnight Objective Vital Signs Temp Pulse Pulse Pulse Resp Resp BP 01/06/19 08:40 01/06/19 08:20 77 18 01/06/19 08:09 01/06/19 07:46 98.5 F 74 18 135/45 01/06/19 01:59 79 01/06/19 01:58 98.3 F 78 20 140/69 01/05/19 21:25 88 20 01/05/19 19:22 98.3 F 84 20 147/61 01/05/19 18:00 89 20 01/05/19 14:13 98.0 F 84 20 145/78 01/05/19 14:00 85 20 Pulse Ox 01/06/19 08:40 98 01/06/19 08:20 01/06/19 08:09 97 01/06/19 07:46 98 01/06/19 01:59 97 01/06/19 01:58 93 01/05/19 21:25 97 01/05/19 19:22 97 01/05/19 18:00 01/05/19 14:13 98 01/05/19 14:00 100 - Physical Examination Narrative exam: General appearance: no acute distress, Moderately obese HEENT: Positive: PERRL Neck: Positive: trachea midline Cardiac: Positive: Reg Rate and Rhythm Lungs: Positive: Decreased Breath Sounds Neuro: Positive: Grossly Intact Extremities: Absent: edema HEENT: Positive: PERRL Neck: Positive: trachea midline Neuro: Positive: Grossly Intact Extremities: Absent: edema - Imaging and Cardiology EKG: report reviewed (SR 86/min)
--- NOTE | 2019-01-06 11:19 | Event Note ---
Date: 01/06/19 Stress test no ischemia
[2019-01-06] MEDS: POTASSIUM CHLORIDE 20 MEQ PACKET PO SCH (11:49)
[2019-01-06] MEDS: ASPIRIN EC 81 MG TAB PO SCH (11:49)
[2019-01-06] MEDS: LACTULOSE 20 GM/30 ML ORAL LIQD PO SCH (11:49)
[2019-01-06] MEDS: allopurinoL 100 MG TAB PO SCH (11:49)
[2019-01-06] MEDS: DORZOLAMIDE/TIMOLOL(NF) OPHTH DROP 2-0.5% 10 ML OU SCH (11:53)
--- NOTE | 2019-01-06 13:27 | Discharge Summary ---
Providers - Providers Date of Admission: 01/04/19 14:43 Date of discharge: 01/06/19 Attending physician: HARJIT MOODY 01/04/19 21:21 Consult to Physician [CONS] Routine Comment: noted/ ban Consulting Provider: IMANI CAMPBELL Physician Instructions: Reason For Exam: multiple myeloma 01/04/19 21:22 Consult to Physician [CONS] Routine Comment: called office/ ban Consulting Provider: FIGUEROA DELEON Physician Instructions: Reason For Exam: CHF exacerbation 01/05/19 11:16 Physical Therapy Evaluation and Treat [CONS] Routine Comment: Reason For Exam: WEAKNESS Primary care physician: [employer]IP[employer]INE Hospitalization Condition: Fair Hospital course: Patient is 73-year-old female with history of Multiple Myeloma IDDM ,HTN and Morbid obesity presented with increasing SOB and Orthopnea for one week. She started chemotherapy couple of weeks ago with Dr Campbell. She went to her oncologist Dr. Campbell and became more dyspneic in the office, so was sent to the emergency dept. She was seen and evaluated in ED, placed on Oxygen and admitted. Cardiology was consulted, evaluated her and CHF ruled out. Shortness of breath improved , she was weaned off Oxygen and discjharged home. Acute respiratory failure Shortness of breath Supplemental Oxygen patient seen by cardiology and CHF ruled out Diabetes mellitus type 2 fingerstick glucose qac and hs Multiple myeloma On chemotherapy, started [address] Shannan Campbell, consulted, following during admission Hypertension. Monitor BP Morbid obesity I discussed diet and exercise total time spent on discharge, 33 mins Disposition: [id number] HOME UNDER HOME HL[facility] - Discharge Diagnoses (1) Acute respiratory failure Status: Acute (2) Multiple myeloma Status: Acute (3) HTN (hypertension) Status: Acute (4) Diabetes mellitus type 2 in obese Status: Acute Core Measure Documentation - Palliative Care Palliative Care/ Comfort Measures: Not Applicable - Core Measures Any of the following diagnoses?: none Exam - Constitutional Vitals: Temp Pulse Resp BP Pulse Ox 98.5 F 77 18 158/73 95 01/06/19 07:46 01/06/19 08:20 01/06/19 08:20 01/06/19 09:48 01/06/19 12:07 Plan Activity: advance as tolerated Diet: low fat, low cholesterol, low salt, diabetic Plan of Treatment: 1.Follow up with PCP in 3-5 days. 2.Follow up with Dr. Campbell in 1 week 3.Follow up with Pulmonology in 1 week Follow up with: PRIMARY CARE,MD [Primary Care Provider] - 3-5 Days Prescriptions: Insulin NPH/Regular [NovoLIN 70/30] 18 unit SUB-Q BID #1 vial Albuterol Sulfate [Proair Respiclick] 90 mcg IH Q4H PRN #1 pump PRN Reason: Shortness Of Breath
[2019-01-06] MEDS ORDERED: IPRATROPIUM/ALBUTEROL SULFATE 3 ML AMPUL.NEB IH SCH (14:00)
--- NOTE | 2019-01-07 01:10 | Treadmill Report ---
PROCEDURE PERFORMED: Myocardial perfusion scan. REQUESTING PHYSICIAN: Dr. Nelson. PROCEDURE DETAILS: Myocardial perfusion scan was done using a standard protocol. The rest and stress images were reviewed. Gated analysis was done. FINDINGS: Homogeneous uptake of tracer noted in the rest and stress perfusion scan, no fixed or reversible defects suggestive of infarct or ischemia. Gated analysis reveals normal wall motion. IMPRESSION: 1. Normal myocardial perfusion scan. 2. Low risk cardiac study. JOB# [id number] RR/NTS
--- NOTE | 2019-01-07 04:50 | Consultation ---
REFERRED BY: Dr. Rapp REASON FOR CONSULTATION: Multiple myeloma. HISTORY OF PRESENT ILLNESS: I saw the patient, a 73-year-old female in the medical floor. The patient has history of multiple myeloma, which relapsed in November 2018. This was originally diagnosed in 2011, IgG kappa. At that time, circulating plasma cells were found. First line of chemotherapy was Velcade and dexamethasone and she received Zometa. Second line of chemotherapy was Revlimid and dexamethasone. Third line of chemotherapy was Pomalyst since 2013 and this was discontinued in 2015. Zometa was continued. Based on laboratory and radiological and bone marrow biopsy report, she was diagnosed with relapse in November 2018. The patient was started on Kyprolis and dexamethasone-based treatment. She received cycle 1 on 12/28/2018. She came to the hospital because of shortness of breath. She received chemotherapy on 01/04/2019. When she was short of breath after chemotherapy, she was sent to hospital. She has been having shortness of breath for a week. She also has been having some cough, which is nonproductive. No hemoptysis. During this admission, CTA chest was done, no PE was found. I have been asked to evaluate the patient for her myeloma and shortness of breath. The patient is going for cardiac evaluation. REVIEW OF SYSTEMS: No headache, no visual disturbances. No ear discharge. No chest pain. History of shortness of breath is present. No vomiting, no diarrhea, and no dysuria. No seizure or syncope. PAST MEDICAL HISTORY: As above. The patient also has diabetes. The patient is on allopurinol to prevent renal issues for myeloma. ALLERGIES: None. SOCIAL HISTORY: No history of tobacco usage. PHYSICAL EXAMINATION: VITAL SIGNS: Temperature 98, pulse 84, respirations 20, BP 145/78. HEENT: No pallor, no icterus. NECK: No neck lymph nodes. HEART: S1, S2. LUNGS: Clear to auscultation. ABDOMEN: Soft, obese. EXTREMITIES: No calf tenderness. LABORATORY DATA: White cell 7, hemoglobin 12, MCV 96, platelets 103. Potassium 4.6, creatinine 0.8, calcium 9.9, bilirubin 0.3, total protein was raised at 8.5. ASSESSMENT AND PLAN: 1. Multiple myeloma relapse, IgG kappa, originally diagnosed in 2011. The patient is presently on fourth line treatment with Kyprolis and dexamethasone. 2. Bone lesions. 3. Mild thrombocytopenia, may be chemo related. 4. Shortness of breath, no PE, being seen by primary care and human resources vice president. 5. The patient was prescribed allopurinol and acyclovir. 6. Plan for Xgeva on every 3 month basis. 7. Mild anemia. 8. History of diabetes. 9. History of hypertension. 10. History of obesity. We will await investigations for her shortness of breath. JOB# [id number] NM/NTS
== END 2019-01-06 15:27 | disposition home health service (06) | DRG 189 ==
LOC: ED 12:07 → 2B-ACE 14:43
PROVIDERS: ADMIT Internal Medicine; ATTEND Internal Medicine
PROC: 4A033R1 Measurement of Arterial Saturation, Peripheral, Percutaneous Approach (ICD-10-PCS; principal; 2019-01-04)
DX: J96.00 Acute respiratory failure, unspecified whether with hypoxia or hypercapnia (principal); I50.43 Acute on chronic combined systolic (congestive) and diastolic (congestive) heart failure; C90.01 Multiple myeloma in remission; Z68.42 Body mass index [BMI] 45.0-49.9, adult; I11.0 Hypertensive heart disease with heart failure; E11.9 Type 2 diabetes mellitus without complications; I10 Essential (primary) hypertension; D69.6 Thrombocytopenia, unspecified; M89.9 Disorder of bone, unspecified; D64.9 Anemia, unspecified; E66.01 Morbid (severe) obesity due to excess calories; T45.1X5A Adverse effect of antineoplastic and immunosuppressive drugs, initial encounter; Z79.4 Long term (current) use of insulin; Z79.899 Other long term (current) drug therapy; Z79.82 Long term (current) use of aspirin; I25.2 Old myocardial infarction; Y92.89 Other specified places as the place of occurrence of the external cause
CPT/HCPCS: 36415; 71046; 71275; 78452; 80053; 82550; 82553; 82803; 82962; 83036; 83735; 83880; 84484; 85025; 85610; 85730; 86850; 86900; 86901; 93005; 93010; 93017; 93306; 94640; 94644; 94760; 96374; G0378; A9502; J1650; J1815; J1940; J2785; J3475; Q9967

== ENCOUNTER 2019-02-03 00:39 | Emergency (ER) | payer MEDICARE ==
[2019-02-03] MEDS ORDERED: IPRATROPIUM/ALBUTEROL SULFATE 3 ML AMPUL.NEB IH ONE (02:31)
--- NOTE | 2019-02-03 03:12 | Emergency Department Report ---
ED General Adult HPI - General Chief complaint: Hyperglycemia Stated complaint: HIGH BLOOD SUGAR Time Seen by Provider: 02/03/19 02:31 Source: patient, family Mode of arrival: Ambulatory Limitations: No Limitations - History of Present Illness Initial comments: Patient presents to the emergency department with chief complaint of hyperglycemia. Patient is currently under chemotherapy treatments for cancer and the family states that the chemotherapy interferes with her glucose levels. Due to the change in her clinical status the patient has been placed on sliding scale for glucose control. The patient's glucose (100 and her daughter gave her 20 units of insulin subcutaneous and rechecked her glucose levels 30 minutes later and was still greater than 400 thus she proceeded to give her an additional 15 units subcutaneous. On Arrival to the ED the patient's glucose level is 135 but the family also is concerned that the patient is having some wheezing -: unknown Severity scale (0 -10): 0 Consistency: constant Improves with: none Worsens with: none Associated Symptoms: denies other symptoms Treatments Prior to Arrival: none - Related Data Home Medications Medication Instructions Recorded Confirmed Last Taken oxyCODONE /ACETAMINOPHEN [Percocet 1 tab PO Q4H PRN 07/07/13 01/04/19 01/03/19 5/325 mg] Aspirin [Adult Aspirin] 81 mg PO DAILY 12/13/18 01/04/19 01/03/19 Insulin Aspart Prot/Aspart(Nf) 15 unit SQ QAM 12/13/18 01/04/19 01/03/19 [NovoLOG Mix 70/30 VIAL] Allopurinol [Zyloprim] 300 mg PO QDAY 01/04/19 01/04/19 01/03/19 Dorzolamide HCl/Timolol Maleat 10 ml OP BID 01/04/19 01/04/19 Unknown [Cosopt Eye Drops] Latanoprost 0.005% 1 drop OP QPM 01/04/19 01/04/19 Unknown Previous Rx's Medication Instructions Recorded Last Taken Type Lactulose [Cephulac] 20 gm PO QDAY #300 ml 08/10/13 01/03/19 Rx Albuterol Sulfate [Proair 90 mcg IH Q4H PRN #1 pump 01/06/19 Unknown Rx Respiclick] Insulin NPH/Regular [NovoLIN 70/30] 18 unit SUB-Q BID #1 vial 01/06/19 Unknown Rx ALBUTEROL Inhaler (OR & NICU) 2 puff IH Q4HR PRN #1 inhalation 02/03/19 Unknown Rx [ProAir HFA Inhaler] Allergies Allergy/AdvReac Type Severity Reaction Status Date / Time No Known Allergies Allergy Verified 12/12/12 12:44 ED Review of Systems ROS: Stated complaint: HIGH BLOOD SUGAR Other details as noted in HPI Comment: All other systems reviewed and negative Constitutional: denies: chills, fever Eyes: denies: eye pain, eye discharge, vision change ENT: denies: ear pain, throat pain Respiratory: wheezing. denies: cough, shortness of breath Cardiovascular: denies: chest pain, palpitations Endocrine: no symptoms reported Gastrointestinal: denies: abdominal pain, nausea, diarrhea Genitourinary: denies: urgency, dysuria, discharge Musculoskeletal: denies: back pain, joint swelling, arthralgia Skin: denies: rash, lesions Neurological: denies: headache, weakness, paresthesias Psychiatric: denies: anxiety, depression Hematological/Lymphatic: denies: easy bleeding, easy bruising ED Past Medical Hx - Past Medical History Previous Medical History?: Yes Hx Hypertension: Yes (on carvidolol) Hx Heart Attack/AMI: Yes (05/2012) Hx Diabetes: Yes Hx Liver Disease: Yes (Jaundice d/t gallstones) Hx Asthma: No Hx HIV: No Additional medical history: bile duct stones - Surgical History Past Surgical History?: Yes Additional Surgical History: bile duct stone removed - Social History Smoking Status: Never Smoker Substance Use Type: None - Medications Home Medications: Home Medications Medication Instructions Recorded Confirmed Last Taken Type oxyCODONE /ACETAMINOPHEN [Percocet 1 tab PO Q4H PRN 07/07/13 01/04/19 01/03/19 History 5/325 mg] Lactulose [Cephulac] 20 gm PO QDAY #300 ml 08/10/13 01/04/19 01/03/19 Rx Aspirin [Adult Aspirin] 81 mg PO DAILY 12/13/18 01/04/19 01/03/19 History Insulin Aspart Prot/Aspart(Nf) 15 unit SQ QAM 12/13/18 01/04/19 01/03/19 History [NovoLOG Mix 70/30 VIAL] Allopurinol [Zyloprim] 300 mg PO QDAY 01/04/19 01/04/19 01/03/19 History Dorzolamide HCl/Timolol Maleat 10 ml OP BID 01/04/19 01/04/19 Unknown History [Cosopt Eye Drops] Latanoprost 0.005% 1 drop OP QPM 01/04/19 01/04/19 Unknown History Albuterol Sulfate [Proair 90 mcg IH Q4H PRN #1 pump 01/06/19 Unknown Rx Respiclick] Insulin NPH/Regular [NovoLIN 70/30] 18 unit SUB-Q BID #1 vial 01/06/19 Unknown Rx ALBUTEROL Inhaler (OR & NICU) 2 puff IH Q4HR PRN #1 inhalation 02/03/19 Unknown Rx [ProAir HFA Inhaler] ED Physical Exam - General Limitations: No Limitations General appearance: alert, in no apparent distress - Head Head exam: Present: atraumatic, normocephalic - Eye Eye exam: Present: normal appearance, PERRL, EOMI - ENT ENT exam: Present: mucous membranes moist - Neck Neck exam: Present: normal inspection - Respiratory Respiratory exam: Present: normal lung sounds bilaterally. Absent: respiratory distress - Cardiovascular Cardiovascular Exam: Present: regular rate, normal rhythm. Absent: systolic murmur, diastolic murmur, rubs, gallop - GI/Abdominal GI/Abdominal exam: Present: soft, normal bowel sounds. Absent: distended, tenderness - Extremities Exam Extremities exam: Present: normal inspection - Back Exam Back exam: Present: normal inspection - Neurological Exam Neurological exam: Present: alert, oriented X3, CN II-XII intact. Absent: motor sensory deficit - Psychiatric Psychiatric exam: Present: normal affect, normal mood - Skin Skin exam: Present: warm, dry, intact, normal color. Absent: rash ED Course Vital Signs 02/03/19 02/03/19 02/03/19 00:41 02:59 03:00 Temperature 97.9 F Pulse Rate 92 H Pulse Rate [ 75 Bilateral] Respiratory 14 20 Rate Respiratory 18 Rate [Bilateral ] Blood Pressure 174/84 O2 Sat by Pulse 92 96 Oximetry ED Medical Decision Making - Radiology Data Radiology results: report reviewed - Medical Decision Making The patient improved after DuoNeb breathing treatment family states the patient has sulfonamide as well as a home is difficult for her to use and asked for an inhaler Critical care attestation.: If time is entered above; I have spent that time in minutes in the direct care of this critically ill patient, excluding procedure time. ED Disposition Clinical Impression: Wheezing Disposition: DC-01 TO HOME OR SELFCARE Is pt being admited?: No Does the pt Need Aspirin: No Condition: Stable Instructions: Reactive Airways Disease (ED) Additional Instructions: return if worse Referrals: PRIMARY CARE, [Primary Care Provider] - 3-5 Days [facility] [Provider Group] - 3-5 Days [facility] [Provider Group] - 3-5 Days Time of Disposition: 03:52
--- NOTE | 2019-02-03 04:11 | XRay Report ---
CHEST 1 VIEW INDICATION / CLINICAL INFORMATION: wheezing. COMPARISON: 01/04/2019 FINDINGS: SUPPORT DEVICES: Port-A-Cath is stable in position. HEART / MEDIASTINUM: Stable. LUNGS / PLEURA: Mild pulmonary vascular congestion. The lungs are otherwise grossly clear. No large p leural effusion. No pneumothorax. ADDITIONAL FINDINGS: No significant additional findings. IMPRESSION: 1. Mild pulmonary vascular congestion. Signer Name: Nubia Farley MD Signed: 02/03/2019 4:07 AM Workstation Name: [id number]
[2019-02-03 04:12] VITALS: BP 125/55
== END 2019-02-03 04:12 | disposition home or self-care (01) ==
LOC: ED 00:39
DX: E11.65 Type 2 diabetes mellitus with hyperglycemia (principal); I10 Essential (primary) hypertension; R06.2 Wheezing; Z79.82 Long term (current) use of aspirin; Z79.4 Long term (current) use of insulin
CPT/HCPCS: 71045; 82962; 94640; 94644